=== PATIENT | female | born 2000 | race Caucasian/White ===

== ENCOUNTER 2024-09-29 16:30 | Emergency (ER) | payer OTHER ==
[~2024-09-29] VITALS: Ht 160 cm; Wt 85.8 kg
[~2024-09-29 16:30] MED LIST: PROZAC20 MG PO
[2024-09-29] MEDS ORDERED: SODIUM CHLORIDE 0.9% 1,000 ML IV PRN (17:00)
[2024-09-29 17:12] LABS: BASOPHILS 0.1 % (0-2); EOSINOPHILS 0.4 % (0-6); HEMATOCRIT 42.9 % (35.0-50.0); HEMOGLOBIN 14.8 g/dL (12.0-18.0); LYMPHOCYTES 3.1 % (24-44); MCH 30.1 (27-36); MCHC 34.5 g/dl (30-36); MCV 87.4 fl (81-99); MONOCYTES 5.6 % (0-12); NEUTROPHILS 90.8 % (39-80); PLATELET COUNT 261 K/uL (140-440); RBC 4.91 M/ul (4.3-5.7); RDW 13.1 (10.5-15.0)
[2024-09-29 17:25] LABS: ALBUMIN 4.2 g/dL (3.4-5.0); ALBUMIN/GLOBULIN RATIO 1.02 (1.1-2.4); ANION GAP 13.6 (7-21); BILIRUBIN, TOTAL 2.5 ng/dL (0.2-1.0); BUN/CREATININE RATIO 16.85 (6.0-28.6); CREATININE, SERUM 0.89 mg/dL (0.55-1.02); POTASSIUM 4.6 mmol/L (3.5-5.1); PROTEIN, TOTAL 8.3 g/dL (6.4-8.2)
[2024-09-29 17:30] LABS: LACTIC ACID, BLOOD 1.7 mmol/L (0.4-2.0)
[2024-09-29 17:51] LABS: INFLUENZA B NAA NEGATIVE (NEGATIVE); RESPIRATORY SYNCYTIAL VIR NAA NEGATIVE (NEGATIVE)
[2024-09-29] MEDS ORDERED: HYDROmorphone HCL 1 MG/ML SYR IV PRN (18:15)
[2024-09-29] MEDS ORDERED: ondansetron HCL 4 MG/2 ML VIAL IV ONE (18:15)
[2024-09-29 18:17] LABS: BILIRUBIN, URINE NEGATIVE (negative); BLOOD/HGB, URINE NEGATIVE (Negative); KETONE, URINE NEGATIVE (Negative); LEUK ESTERASE, URINE NEGATIVE (negative); NITRITE, URINE NEGATIVE (negative); PH, URINE 6.5 (5-7)
[2024-09-29] MEDS ORDERED: ACETAMINOPHEN 500 MG TAB PO ONE (18:45)
[2024-09-29] MEDS ORDERED: CEFTRIAXONE/SODIUM CHLORIDE 2 GM/100 ML PIGGYBACK IV ONE (20:00)
[2024-09-29] MEDS ORDERED: CEFDINIR300 MG PO (21:23)
[2024-09-29] MEDS ORDERED: ONDANSETRON ODT8 MG PO (21:23)
[2024-09-29] MEDS ORDERED: HYDROCODON-ACE1 EA10 PO (21:23)
[2024-09-29] MEDS ORDERED: CEFDINIR 300 MG HOME.PACK PO ONE (21:30)
[2024-09-29] MEDS ORDERED: ONDANSETRON 4 MG HOME.PACK SL ONE (21:30)
[2024-09-29] MEDS ORDERED: IBUPROFEN 800 MG TAB PO ONE (21:30)
[2024-09-29] MEDS ORDERED: HYDROCODONE BIT/ACETAMINOPHEN 5/325 MG 1 TAB HOME.PACK PO ONE (21:30)
[2024-09-29] MEDS ORDERED: LACTATED RINGER'S 1,000 ML IV ONE (21:30)
[2024-09-29 22:45] VITALS: BP 127/76
== END 2024-09-29 22:45 | disposition home or self-care (01) ==
LOC: ED 16:30
PROVIDERS: Emergency Medicine
DX: N12 Tubulo-interstitial nephritis, not specified as acute or chronic (principal); R10.11 Right upper quadrant pain; Z87.891 Personal history of nicotine dependence; Z11.52 Encounter for screening for COVID-19
CPT/HCPCS: 36415; 71045; 74177; 76705; 80053; 81003; 83605; 84703; 85025; 87040; 87088; 87502; 96361; 96366; 96375; 99284-25; A9270; J0696; J1171; J2405; J7030; J7121; Q9967; U0002

== ENCOUNTER 2025-09-04 01:41 | Observation (INO) | payer OTHER ==
[~2025-09-04] VITALS: Ht 162.6 cm; Wt 89.4 kg
[~2025-09-04 01:41] MED LIST changes: +CEFDINIR300 MG PO; +HYDROCODON-ACE1 EA10 PO; +ONDANSETRON ODT8 MG PO
[2025-09-04 03:19] VITALS: BP 122/65
[2025-09-04] MEDS ORDERED: ACETAMINOPHEN 500 MG TAB PO PRN (07:45)
[2025-09-04 13:58] LABS: BLOOD/HGB, URINE NEGATIVE (Negative); KETONE, URINE SMALL (Negative); LEUK ESTERASE, URINE NEGATIVE (negative); NITRITE, URINE NEGATIVE (negative)
[2025-09-04 14:13] LABS: AMPHETAMINES, URINE NEGATIVE (NEGATIVE); BARBITURATES, URINE NEGATIVE (NEGATIVE); BENZODIAZEPINE, URINE NEGATIVE (NEGATIVE); CANNABINOID, URINE NEGATIVE (NEGATIVE); COCAINE, URINE NEGATIVE (NEGATIVE); ECSTASY, URINE NEGATIVE (NEGATIVE); FENTANYL, URINE NEGATIVE (NEGATIVE); METHADONE, URINE NEGATIVE (NEGATIVE); OPIATES, URINE NEGATIVE (NEGATIVE); OXYCODONE, URINE NEGATIVE (NEGATIVE); PHENCYCLIDINE, URINE NEGATIVE (NEGATIVE)
[2025-09-05 16:29] LABS: FETAL HGB - PERCENT FETAL RBCS 0.012 % (0.000-0.124)
== END 2025-09-04 18:12 | disposition home or self-care (01) ==
LOC: FBCO 01:41 → FBC 02:35
PROVIDERS: Nurse Practitioner Obstetrics & Gynecology; ADMIT Obstetrics & Gynecology; ATTEND Obstetrics & Gynecology
DX: O99.891 Other specified diseases and conditions complicating pregnancy (principal); M25.511 Pain in right shoulder; R51.9 Headache, unspecified; Z3A.00 Weeks of gestation of pregnancy not specified; Y04.1XXA Assault by human bite, initial encounter
CPT/HCPCS: 36415; 80307; 81003; 86356; A9270; G0378

== ENCOUNTER 2025-10-12 06:32 | Inpatient (IN) | payer OTHER, MEDICAID ==
[2025-10-13] MEDS ORDERED: LACTATED RINGER'S 1,000 ML IV PRN (05:15)
[2025-10-13 06:14] LABS: MCH 25.9 PG (25.6-32.2); MCHC 32.2 g/dL (32.2-35.5); MCV 80.6 fL (79.4-94.8); RBC 4.32 M/uL (3.93-5.22)
[2025-10-13 06:31] LABS: AMPHETAMINES, URINE NEGATIVE (NEGATIVE); BARBITURATES, URINE NEGATIVE (NEGATIVE); BENZODIAZEPINE, URINE NEGATIVE (NEGATIVE); CANNABINOID, URINE NEGATIVE (NEGATIVE); COCAINE, URINE NEGATIVE (NEGATIVE); ECSTASY, URINE NEGATIVE (NEGATIVE); FENTANYL, URINE NEGATIVE (NEGATIVE); METHADONE, URINE NEGATIVE (NEGATIVE); OPIATES, URINE NEGATIVE (NEGATIVE); OXYCODONE, URINE NEGATIVE (NEGATIVE); PHENCYCLIDINE, URINE NEGATIVE (NEGATIVE)
[2025-10-13 06:58] LABS: ABO A; ANTIBODY SCREEN NEGATIVE; RH POSITIVE
[2025-10-13] MEDS ORDERED: CEFAZOLIN SODIUM 2 GM in SODIUM CHLORIDE 0.9% 100 ML IV SCH (07:00)
[2025-10-13] MEDS ORDERED: TRANEXAMIC ACID IN NACL,ISO-OS 0 ML IV ONE (07:11)
[2025-10-13] MEDS ORDERED: BUPIVACAINE 0.75% IN DEXTROSE 2 ML AMP ONE (07:14)
[2025-10-13] MEDS ORDERED: LIDOCAINE HCL 2% 5 ML SDV ONE (07:14)
[2025-10-13] MEDS ORDERED: OXYTOCIN/0.9 % SODIUM CHLORIDE 500 ML IV ONE (07:15)
[2025-10-13] MEDS ORDERED: DEXAMETHASONE SOD PHOS 4 MG/ML VIAL ONE ×2 (07:20→08:17)
[2025-10-13] MEDS ORDERED: KETOROLAC TROMETHAMINE 30 MG/ML VIAL ONE (07:20)
[2025-10-13] MEDS ORDERED: ACETAMINOPHEN 1,000 MG/100 ML VIAL ONE (07:22)
[2025-10-13] MEDS ORDERED: Ropivacaine HCl 0.5% 30 ML VIAL ONE (07:38)
[2025-10-13] MEDS ORDERED: SODIUM CHLORIDE 0.9% 60 ML IV ONE (07:38)
[2025-10-13] MEDS ORDERED: SODIUM CHLORIDE 0.9% 20 ML IV ONE (08:06)
[2025-10-13] MEDS ORDERED: fentaNYL citrate 100 MCG/2 ML VIAL ONE (08:21)
[2025-10-13] MEDS ORDERED: LACTATED RINGER'S 1,000 ML IV SCH (08:40)
[2025-10-13] MEDS ORDERED: PHENYLEPHRINE HCL IN 0.9% NACL 1 MG/10 ML SYR ONE (08:44)
[2025-10-13] MEDS ORDERED: PROMETHAZINE HCL 25 MG SUPP PR PRN (08:45)
[2025-10-13] MEDS ORDERED: PROCHLORPERAZINE EDISYLATE 10 MG/2 ML VIAL IV PRN (08:45)
[2025-10-13] MEDS ORDERED: OXYTOCIN/0.9 % SODIUM CHLORIDE 500 ML IV SCH (08:45)
[2025-10-13] MEDS ORDERED: PROMETHAZINE HCL 25 MG TAB PO PRN (08:45)
[2025-10-13] MEDS ORDERED: HYDROCODONE/ACETA 5/325 TAB PO PRN (08:45)
[2025-10-13] MEDS ORDERED: OXYCODONE/APAP 5/325 TAB PO PRN (08:45)
[2025-10-13] MEDS ORDERED: METOCLOPRAMIDE HCL 10 MG/2 ML SDV IV PRN (08:45)
--- NOTE | 2025-10-13 08:53 | NUR ---
10/13/25 0853 KikaJonna 0846-PATIENT ARRIVED TO PACU ROOM 105 ON RA RR EVEN 96% PATIENT AWAKE DENIES PAIN OR NAUSEA. HOB IS ELEVATED. FRIEND AT BEDSIDE HOLDING BABY. LR WITH 30 PITOCIN INFUSING TO RIGHT ARM INTACT. FUNDUS FIRM AT UMBILICUS LIGHT RUBRA DRAINAGE ON ALYSON PAD. SR HR 80'S. 0853-PATIENT FEEDING BABY FBC RN AT BEDSIDE RA 97% RR EVEN
[2025-10-13] MEDS ORDERED: SENNOSIDES/DOCUSATE 1 EA TAB PO SCH (09:00)
[2025-10-13 09:11] VITALS: BP 116/58
[2025-10-13] MEDS ORDERED: SIMETHICONE 80 MG CHEW PO SCH (11:00)
[2025-10-13] MEDS ORDERED: MORPHINE SULFATE 4 MG/ML VIAL IV PRN (12:00)
[2025-10-13] MEDS ORDERED: HYDROmorphone HCL 1 MG/ML SYR IV PRN (12:00)
[2025-10-13] MEDS ORDERED: NALOXONE HCL 0.4 MG SYR IV PRN (12:00)
[2025-10-13] MEDS ORDERED: KETOROLAC TROMETHAMINE 30 MG/ML VIAL IV PRN (12:00)
[2025-10-13] MEDS ORDERED: KETOROLAC TROMETHAMINE 30 MG/ML VIAL IV SCH (14:00)
[2025-10-13] MEDS ORDERED: ENOXAPARIN SODIUM 40 MG/0.4 ML SYR SUB-Q SCH (21:00)
[2025-10-14 06:17] LABS: MCH 26.2 PG (25.6-32.2); MCHC 32.4 g/dL (32.2-35.5); MCV 80.9 fL (79.4-94.8); RBC 2.98 M/uL (3.93-5.22)
[2025-10-14] MEDS ORDERED: IBUPROFEN 600 MG TAB PO SCH (08:00)
--- NOTE | 2025-10-14 18:39 | PR ---
[facility] [address] [place], [place] [address] Signed PP Progress Notes Datetime Report Generated by CPN: 10/14/2025 18:39 SUBJECTIVE: [id number] Pain: Within Normal Limits Nausea/Vomiting: Denies Flatus: Yes Bowel Movement: No Vital Signs: [id number] Vital Signs: Reviewed; Within Normal Limits EXAM: Ongoing Cardiovascular: Normal Respiratory: Normal Abdomen/Uterus: Normal Lochia: Normal Vulva/Perineum: Not Done Breasts: Not Done CVA Tenderness: Normal Extremities: Normal Exam Comments: Fundus firm U-2 nontender. Incision bandaged and dry. Pt w/ baby on chest at this time IMPRESSION/PLAN/PROCEDURES: [id number] Impression: Normal Progression Plan: Continue Present Management Progress Notes: Pt seen and examined. Doing well. Ambulating, voiding, and tolerating full diet. Pain and lochia minimal. well. Anemia noted today w/ Hgb 7.8. Normotensive, no tachycardia, and no lightheadedness w/ ambulation. Some nausea w/ standing however. Will start iron and recheck Hgb in the AM. No evidence of ongoing blood loss. Signing Physician: Bassam Reinoso DO Copies: ~ *Electronically Signed* 10/14/25 4400 BASSAM REINOSO (NICOLETTE) DO PATIENT NAME: MARI JACOBSON PROGRESS NOTE DATE OF : 01 PHYSICIAN: BASSAM REINOSO (JD) DO RPT #: [id number] REPORT IS CONFIDENTIAL AND NOT TO BE RELEASED WITHOUT AUTHORIZATION
[2025-10-14] MEDS ORDERED: FERROUS SULFATE 325 MG TAB PO SCH (21:00)
[2025-10-15 06:06] LABS: MCH 26.1 PG (25.6-32.2); MCHC 31.6 g/dL (32.2-35.5); MCV 82.6 fL (79.4-94.8); RBC 2.76 M/uL (3.93-5.22)
--- NOTE | 2025-10-15 17:23 | PR ---
[facility] [address] [place], [place] [address] Signed PP Progress Notes Datetime Report Generated by CPN: 10/15/2025 17:23 Pain: Within Normal Limits Nausea/Vomiting: Denies Flatus: Yes Bowel Movement: No Vital Signs: Reviewed; Within Normal Limits EXAM: Ongoing Cardiovascular: Normal Respiratory: Normal Abdomen/Uterus: Normal Lochia: Normal Vulva/Perineum: Not Done Breasts: Not Done CVA Tenderness: Normal Extremities: Normal Incision: Normal Progress: Normal Exam Comments: Fundus firm U-2 nontender Impression: Normal Progression Other Impression: Acute blood loss anemia - asymptomatic Plan: Discharge Progress Notes: Pt seen and examined. Doing well. Ambulating, voiding, and tolerating full diet. Pain and lochia minimal. well. No lightheadedness, dizziness. Strongly desires d/c home. No questions / concerns. Reviewed d/c instructions / medications. Undecided on pp contraception. Reviewed anemia and no symptoms. Discussed oral iron vs iron infusion and pt desires oral iron. Call with any symptoms or concerns. All questions answered Signing Physician: Bassam Reinoso DO Copies: ~ *Electronically Signed* 10/15/25 3641 BASSAM REINOSO (NICOLETTE) DO PATIENT NAME: MARI JACOBSON PROGRESS NOTE DATE OF : 01 PHYSICIAN: BASSAM REINOSO (JD) DO RPT #: [id number] REPORT IS CONFIDENTIAL AND NOT TO BE RELEASED WITHOUT AUTHORIZATION
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
== END 2025-10-15 18:30 | disposition home or self-care (01) | DRG 788 ==
LOC: FBC 10-13 04:55
PROVIDERS: ADMIT Obstetrics & Gynecology; ATTEND Obstetrics & Gynecology
PROC: 3E03329 Introduction of Other Anti-infective into Peripheral Vein, Percutaneous Approach (ICD-10-PCS; 2025-10-13)
PROC: 10D00Z1 Extraction of Products of Conception, Low, Open Approach (ICD-10-PCS; principal; 2025-10-13 07:30)
DX: O34.211 Maternal care for low transverse scar from previous cesarean delivery (principal); Z3A.39 39 weeks gestation of pregnancy; Z37.0 Single live birth; O40.3XX0 Polyhydramnios, third trimester, not applicable or unspecified; O99.62 Diseases of the digestive system complicating childbirth; K66.0 Peritoneal adhesions (postprocedural) (postinfection)
CPT/HCPCS: 01961; 36415; 80307; 85027; 86850; 86900; 86901; A9270; J0131; J0165; J0688; J1100; J1650; J1885; J2003; J2405; J2795; J3010